=== PATIENT | male | born 1955 | race Caucasian/White ===

== ENCOUNTER 2018-08-25 00:24 | Inpatient (IN) | payer OTHER ==
[2018-08-25] VITALS (8 sets, daily range): BP systolic 109–168; BP diastolic 64–84
[~2018-08-25] VITALS: Ht 182.9 cm; Wt 98.4 kg
[2018-08-25 00:52] LABS: ABSOLUTE NEUTROPHILS 4.6 thou/uL (1.4-8.2); BASOPHILS 1.4 % (0.0-2.0); EOSINOPHILS 1.9 % (0.0-3.0); HEMATOCRIT 40.6 % (42.0-52.0); HEMOGLOBIN 14.2 gm/dL (14.0-18.0); LYMPHOCYTES 36.4 % (24.0-44.0); MCHC 34.8 g/dL (28.0-37.0); MCV 89.1 fL (80.0-100.0); MONOCYTES 6.6 % (1.0-8.0); PLATELET COUNT 237 thou/uL (150-400); POLYS 53.7 % (36.0-66.0); RBC 4.56 mil/uL (4.50-6.00); RDW 12.9 % (10.5-14.5); WBC 8.6 thou/uL (4.0-11.0)
[2018-08-25 01:00] LABS: ANION GAP 14 mmol/L (7-16); BUN 34 mg/dL (7-18); CALCIUM 8.8 mg/dL (8.5-10.1); CHLORIDE 103 mmol/L (98-107); CO2 22 mmol/L (21-32); CREATININE 1.4 mg/dL (0.7-1.3); GLUCOSE 125 mg/dL (74-106); POTASSIUM 3.8 mmol/L (3.5-5.1); SODIUM 139 mmol/L (136-145)
[2018-08-25 01:09] LABS: ALBUMIN 3.4 g/dL (3.4-5.0); SGOT 19 U/L (15-37); SGPT 31 U/L (30-65); TOTAL BILIRUBIN 0.4 mg/dL (<0.1-1.0); TOTAL PROTEIN 6.8 g/dL (6.4-8.2); TROPONIN-I <0.06 ng/mL (<0.06)
[2018-08-25] MEDS ORDERED: [UNRECOGNIZED DRUG - OTHER] PO (01:12)
[2018-08-25] MEDS ORDERED: WELLBUTRIN SR150 M1 PO (01:46)
[2018-08-25] MEDS ORDERED: EFFEXOR XR75 MG PO (01:46)
--- NOTE | 2018-08-25 02:02 | NUR ---
INSULIN CHECK WITH NURSE, 5UNITS NOVOLOG IV , 2ND CHECK
--- NOTE | 2018-08-25 03:54 | NUR ---
PT ADMITED FROM ED AROUND 0300. VSS. ASSESSMENT CHARTED. PT C/O 1/10 CHEST PRESSURE. DENIES SOA, N/V, OR DIZZINESS. PT WAS GIVEN NITRO AND MORPHINE IN ER PER EMAR. AWAITING NEW ORDERS. ADMISSION AND MED RECONCIL COMPLETE, PT IN [place] HAS DPOA AND AD PAPERS. WILL CONTINUE TO MONITOR AND WITH POC.
[2018-08-25 06:58] LABS: CHOLESTEROL 200 mg/dL (<200); HDL CHOLESTEROL 46 mg/dL (>40); LDL CHOLESTEROL 134 mg/dL (<100); TC:HDL 4.3 Ratio (Not establshd); TRIGLYCERIDE 102 mg/dL (<150); VLDL 20 mg/dL (<40)
[2018-08-25 06:59] LABS: SERUM ASSESSMENT Clear
[2018-08-25 07:00] LABS: TROPONIN-I 1.74 ng/mL (<0.06)
--- NOTE | 2018-08-25 07:43 | EKG ---
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 : 1955 Requested By: Angélica Rae Order Number: [id number] MD: Jeet Lewis Measurements Intervals [place] Rate: 58 P: 22 RI: 142 QRS: -51 QRSD: 103 T: 32 QT: 432 QTc: 425 Interpretive Statements Sinus rhythm LAD, consider left anterior fascicular block Poor R wave progression No previous ECG available for comparison Electronically Signed On 08-25-2018 7:42:55 CDT by Jeet Lewis [email or web address] ��������������������������������������������� <ELECTRONICALLY SIGNED> ���������������������������������������� By: Jeet Lewis MD, [facility] ��������������������������������������������� 08/25/18 0742 D: 0425 Jeet Lewis MD, FAC /EPI
--- NOTE | 2018-08-25 07:43 | EKG ---
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 : 1955 Requested By: Angélica Rae Order Number: [id number] MD: Jeet Lewis Measurements Intervals [place] Rate: 53 P: 17 [place]: 143 QRS: -50 QRSD: 105 T: 73 QT: 452 QTc: 425 Interpretive Statements Sinus rhythm LAD, consider left anterior fascicular block Poor R wave progression Nonspecific ST and T wave abnormality No previous ECG available for comparison Electronically Signed On 08-25-2018 7:43:46 CDT by Jeet Lewis [email or web address] ��������������������������������������������� <ELECTRONICALLY SIGNED> ���������������������������������������� By: Jeet Lewis MD, [facility] ��������������������������������������������� 08/25/18 0743 Jeet Lewis MD, [facility] /EPI
--- NOTE | 2018-08-25 07:45 | EKG ---
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 : 1955 Requested By: Annemarie Camargo Order Number: [id number] MD: Jeet Lewis Measurements Intervals [place] Rate: 51 P: 4 [place]: 147 QRS: -36 QRSD: 106 T: 61 QT: 473 QTc: 436 Interpretive Statements Sinus rhythm Left axis deviation Poor R wave progression Nonspecific ST and T wave abnormality No previous ECG available for comparison Electronically Signed On 08-25-2018 7:45:25 CDT by Jeet Lewis [email or web address] ��������������������������������������������� <ELECTRONICALLY SIGNED> ���������������������������������������� By: Jeet Lewis MD, [facility] ��������������������������������������������� 08/25/18 0745 9 9 Jeet Lewis MD, FACC /EPI
--- NOTE | 2018-08-25 10:50 | NUR ---
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 VSS SB ON MONITER, R GROIN MYNX SITE WITHOUT HEMATOMA OR BRUIT. IMSTRUCTED BR X 4 HOURS. SEE DATA FLOW SHEET FOR FREQ VS AND GROIN CHECKS. WILL CONTINUE TO MONITER AND CARE FOR PT PER SNEHA N OF CARE
--- NOTE | 2018-08-25 15:00 | 2DMMODE ---
[facility] [address] [place] [address] 2 D/M-MODE ECHOCARDIOGRAM Name: AMIRAMARSHALL BLANC Room #: 206-P ADM IN M.R.#: [id number] ������������� Admission: 08/25/18 ������������� Attend Phys: Mikhail Pagan, Discharge: ��� ������������� ��� Date of : 51 Date of Service: 08/25/18 1459 �� Report #: [id number] �������� ��������������������������������������������[id number] THIS REPORT FOR: //name// APPROVED REPORT Study performed: 08/25/2018 12:59:48 EXAM: Comprehensive 2D, Doppler, and color-flow Echocardiogram Patient Location: Bedside Room #: 206 Status: routine BSA: 2.13 HR: 52 bpm BP: 109/64 mmHg Rhythm: NSR Other Information Study Quality: Adequate. Unable to move patient/post heart cath Indications CAD AK Echo Enhancing Agent Indication: Endocardial border delineation Agent(s) / Amount(s) Used: Optison 3 cc 2D Dimensions RVDd: 28.43 mm IVSd: 10.96 (7-11mm) LVOT Diam: 22.41 (18-24mm) LVDd: 49.25 mm PWd: 12.38 (7-11mm) Ascending Ao: 28.87 (22-36mm) LVDs: 31.06 (25-40mm) Aortic Root: 30.09 mm IVC: 10.00 mm Volumes Left Atrial Volume (Systole) Single Plane 4CH: 63.88 mL Single Plane 2CH: 57.08 mL LA ESV Index: 30.00 mL/m2 Aortic Valve AoV Peak Armando.: 1.26 m/s AO Peak Gr.: 6.39 mmHg LVOT Max P.98 mmHg LVOT Max V: 1.00 m/s [facility] [place] [address] [place] [address] 2 D/M-MODE ECHOCARDIOGRAM Name: COLLIERMARSHALL BLANC Room #: [facility]- ADM IN ..#: [id number] ������������� Admission: 08/25/18 ������������� Attend Phys: Mikhail Pagan, Discharge: ��� ������������� ��� Date of : 51 Date of Service: 08/25/18 1459 �� Report #: [id number] �������� ��������������������������������������������[id number] Vmax: 3.11 cm2 Mitral Valve E/A Ratio: 0.9 MV Decel. Time: 239.55 ms MV E Max Armando.: 0.56 m/s MV A Armando.: 0.62 m/s MV PHT: 69.47 ms IVRT: 101.50 ms Pulmonary Valve PV Peak Armando.: 0.86 m/s PV Peak Gr.: 2.94 mmHg Pulmonary Vein P Vein S: 0.37 m/s P Vein A: 0.33 m/s P Vein D: 0.35 m/s P Vein A Dur.: 161.5 msec P Vein S/D Ratio: 1.06 Tricuspid Valve RAP Estimate: 5.00 mmHg Left Ventricle The left ventricle is normal size. Hypokinetic LV apex. A false tendon is noted in the left ventricle. There is normal left ventricular wall thickness. Left ventricular systolic function is borderline. LVEF is 50-55%. Mild diastolic dysfunction is present (impaired relaxation pattern). Right Ventricle The right ventricle is normal size. The right ventricular systolic function is normal. Atria The left atrium size is normal. The right atrium size is normal. Aortic Valve The aortic valve is normal in structure. No aortic regurgitation is present. There is no aortic valvular stenosis. Mitral Valve The mitral valve is normal in structure. Trace mitral regurgitation. No evidence of mitral valve stenosis. Tricuspid Valve The tricuspid valve is normal in structure. Trace tricuspid [facility] [address] [place] [address] 2 D/M-MODE ECHOCARDIOGRAM Name: AMIRAMARSHALL JAYASHREE Room #: 206-P [facility] IN M.R.#: [id number] ������������� Admission: 08/25/18 ������������� Attend Phys: Mikhail Pagan, Discharge: ��� ������������� ��� Date of : 51 Date of Service: 08/25/18 1459 �� Report #: [id number] �������� ��������������������������������������������[id number] regurgitation. Unable to assess PA pressure. Pulmonic Valve The pulmonary valve is normal in structure. Trace pulmonic regurgitation. Great Vessels The aortic root is normal in size. IVC is normal in size and collapses >50% with inspiration. Pericardium There is no pericardial effusion. <Conclusion> The left ventricle is normal size. There is normal left ventricular wall thickness. Left ventricular systolic function is borderline. LVEF is 50-55%. Hypokinetic LV apex. A false tendon is noted in the left ventricle. Mild diastolic dysfunction is present (impaired relaxation pattern). The right ventricle is normal size. The left atrium size is normal. The aortic valve is normal in structure. Trace mitral regurgitation. Trace tricuspid regurgitation. ��������������������������������������������� <ELECTRONICALLY SIGNED> ���������������������������������������� By: Roger Bosch MD ��������������������������������������������� 08/25/18 1459 1459 1459 Roger Bosch MD /INF
--- NOTE | 2018-08-25 17:22 | CATHLAB ---
[facility] [address] [place] [address] INVASIVE PROCEDURE REPORT Name: MARSHALL COLLIER Room #: 206-P ADM IN M.R.#: [id number] ������������� Admission: 08/25/18 ������������� Attend Phys: Mikhail Pagan, Discharge: ��� ������������� ��� Date of : 51 Date of Service: 08/25/18 1721 �� Report #: [id number] �������� ��������������������������������������������[id number] THIS REPORT FOR: //name// APPROVED REPORT Study performed: 08/25/2018 09:17:15 Patient Details Patient Status: In-Patient Room #: The patient is a 63 year-old male Event Personnel Roger Bosch Well Shooter, Swapnil Vasquez RN Brush Stainer, Lucas Ribeiro RT(R)(CV) Monitor, Laura Gómez RTR, MRI CT TECH Monitor, Dm Santizo Procedures Performed Left Heart Cath w/or w/o Coronaries [id number] [facility] Place w/wo Plasty Single LAD [id number] Indication Non-STEMI , Dyspnea, Unstable angina , Chest pain Risk Factors Family History, Hypercholesterolemia Procedure Narrative The Right Groin^ was infiltrated with 1% Lidocaine subcutaneous anesthesia. A PINNACLE 4FR Sheath #[id number] sheath was inserted into the RFA^. Coronary angiography was performed using coronary diagnostic catheters. The right coronary system was accessed and visualized with a JR4 catheter. The left coronary system was accessed and visualized with a JL4 catheter. The left ventricle was accessed and visualized with a PIGTAIL catheter. Left ventricular/Aortic Valve gradient assessed via catheter pullback. Left ventriculogram was performed in 30 degree projection. Closure device was deployed with a 6 Fr MYNXGRIP 6/7F #[id number]. There was no hematoma. Intraoperative Conscious Sedation Sedation start time: 9.33 Case end Time: 10.33 Versed 1 mg Fluoro Time: 17.25 minutes Dose: DAP 62441.[address] [facility] [place] [address] INVASIVE PROCEDURE REPORT Name: MARSHALL COLLIER Room #: 206-P [facility] IN .R.#: [id number] ������������� Admission: 08/25/18 ������������� Attend Phys: Mikhail Pagan, Discharge: ��� ������������� ��� Date of : 51 Date of Service: 08/25/18 1721 �� Report #: [id number] �������� ��������������������������������������������[id number] Contrast Type and Amount: Visipaque 250 ml Coronary Angiography The patient's coronary anatomy is right dominant. Diagnostic Cath Left Main There is a large caliber vessel, patent with no flow-limiting lesions. LAD After giving off a septal grinding room supervisor, there is a total occlusion of the proximal LAD. The mid and distal segments are filled via collateral circulation from the right coronary artery. Diagonal 1 This is a moderate size caliber vessel with a moderate ostial stenosis. Circumflex There is a moderate size caliber vessel, supplies one moderate size OM vessel. There is mild disease in the mid segment. OM1 This is a patent vessel, with no flow-limiting lesions. Right Coronary There is moderate diffuse disease in the mid segment, 40%. R PDA There is a small-caliber vessel, patent with no flow-limiting lesions. RPLV There is a small-caliber vessel, patent with no flow-limiting lesions. Left Ventriculography Left Ventriculography was not performed. Ejection Fraction was 45-50% based off patient's Echocardiogram. An LVEDP was measured and there is no gradient across the outflow tract. Hemodynamics The aortic pressure is 145/71 mmHg with a mean of 96 mmHg. The left ventricular pressure is 120/11 mmHg with a mean of mmHg. The left ventricular end diastolic pressure is 29 mmHg. There was no gradient across the aortic valve upon pullback. Pullback from the left ventricle to the aorta revealed no gradient across the aortic valve. PCI Technique Lesion Percutaneous coronary intervention was performed on the proximal left anterior descending artery segment. The lesion stenosis prior to intervention was 100% with BARBIE 2 flow. A MappTA 6FR XB 3.5 #[id number] Guide Catheter was used to engage the ostium. A Luge Wire .014 x 182CM #[id number] Interventional Guidewire was used to cross the lesion. BALLOON DILATION [facility] [address] [place] [address] INVASIVE PROCEDURE REPORT Name: MARSHALL COLLIER Room #: 206-P ADM IN M.R.#: [id number] ������������� Admission: 08/25/18 ������������� Attend Phys: Mikhail Pagan, Discharge: ��� ������������� ��� Date of : 51 Date of Service: 08/25/18 1721 �� Report #: [id number] �������� ��������������������������������������������[id number] A Balloon catheter Euphora RX 2.5 x 12 #[id number] was inserted and inflated up to 6.00atm for 14seconds. Additional Inflation: 6.00atm for 15seconds. STENT DEPLOYMENT A drug-eluting stent RESOLUTE MADDIE RX 2.75 X 8 #[id number] was inserted and inflated up to 12.00atm for 21seconds. POST STENT DEPLOYMENT BALLOON DILATION A Balloon catheter Euphora NC RX 2.75 x 6 #[id number] was inserted and inflated up to 18.00atm for 24seconds. Additional Inflation: 18.00atm for 12seconds. Final angiography reveals 0 % stenosis with BARBIE 3 flow. PCI Technique Lesion 2 Percutaneous Coronary Intervention was performed on the first diagnonal branch segment. The lesion stenosis prior to intervention was 99% with BARBIE 1 flow. A MappTA 6FR XB 3.5 #908674 Guide Catheter was used to engage the ostium. A Luge Wire .014 x 182CM #[id number] Interventional Guidewire was used to cross the lesion. Balloon Dilation A Balloon catheter Euphora RX 2.0 x12 #[id number] was inserted and inflated up to 8.00atm for 30seconds. Additional Inflation: 8.00atm for 15seconds. After the proximal LAD was stented, there was diminished flow in the first diagonal artery. A wire was placed into the first diagonal artery. A 2.0 mm balloon was inflated. This restored BARBIE-3 blood flow down the first diagonal artery. Conclusion 1. Successful insertion of a drug-eluting stent into the proximal LAD stenosis. 2. Balloon dilatation of a jailed ostium of the first diagonal artery, with restorationist of BARBIE-3 blood flow. 3. Mild to moderate disease in the RCA. 4. Recommend dual antiplatelet therapy and aggressive risk factor management. ��������������������������������������������� <ELECTRONICALLY SIGNED> ���������������������������������������� By: Roger Bosch MD ��������������������������������������������� 08/25/181720 20 1721 Roger Bosch MD /INF
[2018-08-25 23:08] LABS: GLYCOHEMOGLOBIN (HGB A1C) 5.5 % (4.8-5.6)
[2018-08-26 00:55] VITALS: BP 111/55
--- NOTE | 2018-08-26 03:16 | NUR ---
ASSUMED CARE 1900. VSS. ASSESSMENT CHARTED. PT DENIES ANY CP OR CONCERNS. R GROIN SITE CDI NO HEMATOMA OR BRUIT. PLAN FOR LABS AND EKG THIS AM. WILL CONTINUE TO MONITOR AND WITH POC
[2018-08-26 04:48] LABS: HEMATOCRIT 38.5 % (42.0-52.0); HEMOGLOBIN 13.2 gm/dL (14.0-18.0); MCH 30.8 pg (26.0-34.0); MCHC 34.2 g/dL (28.0-37.0); RBC 4.28 mil/uL (4.50-6.00); RDW 12.6 % (10.5-14.5); WBC 9.3 thou/uL (4.0-11.0)
[2018-08-26 04:55] VITALS: BP 116/63
[2018-08-26 05:09] LABS: CALCIUM 8.2 mg/dL (8.5-10.1); CREATININE 1.2 mg/dL (0.7-1.3); POTASSIUM 3.9 mmol/L (3.5-5.1); TOTAL BILIRUBIN 0.9 mg/dL (<0.1-1.0)
[2018-08-26 05:11] LABS: TROPONIN-I 27.1 ng/mL (<0.06)
[2018-08-26 07:41] VITALS: BP 109/65
[2018-08-26 12:16] VITALS: BP 122/77
--- NOTE | 2018-08-26 14:04 | EKG ---
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 : 1955 Requested By: Roger Bosch Order Number: [id number] MD: Emil Horton Measurements Intervals [place] Rate: 49 P: 17 RI: 145 QRS: -35 QRSD: 109 T: 74 QT: 525 QTc: 475 Interpretive Statements Sinus bradycardia Left axis deviation Anteroseptal infarct, age indeterminate Compared to ECG 08/25/2018 07:00:19 Myocardial infarct finding now present Sinus rhythm no longer present Poor R-wave progression no longer present ST (T wave) deviation no longer present Electronically Signed On 08-26-2018 14:04:21 CDT by Emil Horton [email or web address] ��������������������������������������������� <ELECTRONICALLY SIGNED> ���������������������������������������� By: Emil Horton MD ��������������������������������������������� 08/26/18 1404 1153 1153 Emil Horton MD /EPI
[2018-08-26 15:51] VITALS: BP 125/85
--- NOTE | 2018-08-26 16:29 | NUR ---
VSS NSR LUNGS CLEAR RA SAT IS 985, UP IN ROOM AND ALCARAZ TODAY WITHOUT C/O CHEST PAIN . WILL CONTINUE TO MONITER AND CARE FOR PT PER PLAN OF CARE
--- NOTE | 2018-08-26 16:57 | EKG ---
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 : 1955 Requested By: Roger Bosch Order Number: [id number] MD: Jeet Lewis Measurements Intervals [place] Rate: 63 P: -8 [place]: 139 QRS: -46 QRSD: 100 T: 120 QT: 447 QTc: 458 Interpretive Statements Sinus rhythm Left anterior fascicular block Poor R wave progression T-wave abnormality Compared to ECG 08/25/2018 07:00:19 no significant change was found Electronically Signed On 08-26-2018 16:57:01 CDT by Jeet Lewis [email or web address] ��������������������������������������������� <ELECTRONICALLY SIGNED> ���������������������������������������� By: Jeet Lewis MD, [facility] ��������������������������������������������� 08/26/18 1657 0722 1 Jeet Lewis MD, [facility] /EPI
[2018-08-26 19:55] VITALS: BP 125/71
--- NOTE | 2018-08-27 04:06 | NUR ---
VSS. ASSESSMENT CHARTED. PT DENIES CP, SOA, OR CONCERN. R GROIN SITE CDI, NO HEMATOMA OR BRUIT. PT REVIEW CARDIOLOGY BOOKLET, SLEPT WELL THROUGHOUT NIGHT. PLAN FOR HOPEFUL D/C TODAY. WILL CONTINUE TO MONITOR AND WITH POC.
[2018-08-27 04:55] VITALS: BP 111/74
[2018-08-27 07:18] VITALS: BP 122/69
[2018-08-27] MEDS ORDERED: ASPIR 8181 MG PO (08:17)
[2018-08-27] MEDS ORDERED: NITROGLYCERIN0.4 MG SUBLING (08:17)
[2018-08-27] MEDS ORDERED: EFFIENT10 MG PO (08:17)
[2018-08-27] MEDS ORDERED: ATORVASTATIN CA40 MG PO (08:17)
[2018-08-27 11:05] VITALS: BP 122/69
== END 2018-08-27 11:46 | disposition home or self-care (01) | DRG 246 ==
LOC: ER 00:24 → 2N 02:20 → EROBS 02:20 → 2N 02:35 → ENTRNSPT 08-27 11:24 → 2N 08-27 11:46
PROVIDERS: Internal Medicine Cardiovascular Disease; Nurse Practitioner Acute Care; Student in an Organized Health Care Education/Training Program; ADMIT Internal Medicine
DX: I21.4 Non-ST elevation (NSTEMI) myocardial infarction (principal); I50.33 Acute on chronic diastolic (congestive) heart failure; F41.9 Anxiety disorder, unspecified; F32.9 Major depressive disorder, single episode, unspecified; E78.5 Hyperlipidemia, unspecified; Z87.891 Personal history of nicotine dependence; Z79.899 Other long term (current) drug therapy; Z82.49 Family history of ischemic heart disease and other diseases of the circulatory system
CPT/HCPCS: 10081

== ENCOUNTER 2018-09-01 08:12 | Emergency (ER) | payer OTHER ==
[~2018-09-01] VITALS: Ht 182.9 cm; Wt 95.3 kg
[~2018-09-01 08:12] MED LIST: ASPIR 8181 MG PO; ATORVASTATIN CA40 MG PO; EFFEXOR XR75 MG PO; EFFIENT10 MG PO; NITROGLYCERIN0.4 MG SUBLING; WELLBUTRIN SR150 M1 PO; [UNRECOGNIZED DRUG - OTHER] PO
[2018-09-01] MEDS ORDERED: ASPIRIN325 PO (08:25)
[2018-09-01 09:41] VITALS: BP 133/73
== END 2018-09-01 09:41 | disposition home or self-care (01) ==
LOC: ER 08:12
DX: R04.0 Epistaxis (principal); I25.2 Old myocardial infarction; Z87.891 Personal history of nicotine dependence